=== PATIENT | female | born 1995 | race Caucasian/White ===

== ENCOUNTER 2025-03-13 18:22 | Emergency (ER) | payer OTHER, SELFPAY ==
--- NOTE | 2025-03-13 18:25 | ED.URI ---
HPI - URI/Sore Throat General Chief Complaint: Upper Respiratory Infection Stated Complaint: Body ache Time Seen by Provider: 03/13/25 18:24 Source: patient Mode of arrival: ambulatory Limitations: no limitations History of Present Illness HPI Narrative: Patient is a 29-year-old female presents with body aches and feeling feverish since this morning. Patient called in sick to work today needs a note. Denies any nausea, vomiting, diarrhea, congestion, sore throat, ear pain. Reports COVID is going around work Related Data Home Medications ?Medication ?Instructions ?Recorded ?Confirmed ?Last Taken ?Type clonazepam 1 mg tablet mg 03/13/25 Unknown History dextroamphetamine-amphetamine 30 03/13/25 Unknown History mg tablet escitalopram oxalate 10 mg tablet mg 03/13/25 Unknown History zolpidem 10 mg tablet mg 03/13/25 Unknown History Allergies Allergy/AdvReac Type Severity Reaction Status Date / Time No Known Allergies Allergy Verified 03/13/25 18:25 Review of Systems Review of Systems: All systems reviewed & are unremarkable except as noted in HPI and below Constitutional: Constitutional: Reports chills, Denies fatigue, Reports fever(s), Denies headache(s), Denies malaise and Denies weakness Eyes: Eyes: Denies blurry vision, Denies itchy eyes and Denies loss of vision ENT: Denies otalgia, Denies headache(s), Reports nasal congestion, Denies sinus pain and Denies sore throat Cardiovascular: Cardiovascular: Denies chest pain, Denies irregular heart rhythm and Denies dyspnea Respiratory: Respiratory: Reports cough and Denies dyspnea Gastrointestinal: Gastrointestinal: Denies abdominal pain, Denies diarrhea, Denies nausea and Denies vomiting Musculoskeletal: Musculoskeletal: Denies back pain, Reports myalgias and Denies arthralgias Integumentary/Breasts: Skin/Breast: Denies pruritus and Denies rash Neurologic: Denies headache(s), Denies loss of vision and Denies weakness Psychiatric: Psychiatric: Reports no additional psychiatric complaints Endocrine: Endocrine: Denies fatigue Allergic/Immunologic: Allergic/Immunologic: Denies itchy eyes PMFSH Comments At time of signature, agree with nursing past medical, surgical, social and family history. There is no relevant family history pertinent to the presenting complaint. Exam Const: General: cooperative, healthy appearing, comfortable, no acute distress and well nourished Nutritional Appearance: well nourished Orientation/consciousness: patient oriented x3 Limitations: no limitations HENMT: Head: normal to inspection, normocephalic and atraumatic Ears: hearing grossly normal bilaterally, external ears normal, TM's normal bilaterally, EAC's normal and no periauricular adenopathy Face/Nose/Sinus: Normal external nose present, Abnormal mucous membranes and turbinates present erythematous bilateral and diffuse, normal facial exam, sinuses nontender and face symmetric Face and sinus: normal facial exam, sinuses nontender and face symmetric Mouth: Yes Normal oral and palatal mucosa present, Yes lip normal, Yes tongue normal, Yes Normal salivary glands and ducts present, Yes oropharynx normal and Yes moist mucous membranes Teeth and gingiva: dentition normal Throat: posterior oropharynx normal, tonsils normal and uvula midline Eyes: General: appearance normal, both eyes and all related structures Alignment and Position: alignment normal and position normal Periorbital: periorbital findings normal Eyelids: eyelids normal Pupils: Equal, round and reactive pupils present Neck: Neck: normal visual inspection, full ROM, no lymphadenopathy and supple Chest: Chest palpation & inspection: normal inspection of the chest and normal palpation of entire chest wall Resp: Effort & Inspection: normal respiratory effort and able to speak in complete sentences Auscultation: clear to auscultation bilaterally, no crackles, no rales, no rhonchi and no wheezes Cardio: Rate: regular rate Rhythm: regular rhythm Heart sounds: S1 normal heart sound present and S2 normal heart sound present GI: Inspection: normal to inspection Skin: General skin exam: normal color and no rashes or lesions noted Neuro: General: patient oriented x3 and moves all extremities Cranial nerves: Yes Equal, round and reactive pupils present Speech: normal speech Gait exam (Neuro): Normal gait present Extrem: General: normal to inspection, full ROM and no edema Psych: Appearance: grossly normal and well kempt Mental Status: mental status grossly normal Speech and movement: Normal speech and movement present Affect: normal affect Attitude: cooperative Thought process: Normal thought process present Course Course Emergency Course: Discharge instructions reviewed with patient, as well as provided in writing per nursing staff. The instructions also include specific and strict return/GO TO THE ER as well as f/u information. All questions have been answered, and the patient deny any further questions with discharge and discharge plan. Portions of this record may have been created with voice recognition software Level of Care: Express Care Visit Vital Signs Vital signs: Vital Signs Temperature 36.6 C 03/13/25 18:34 Pulse Rate 70 03/13/25 18:34 Respiratory Rate 18 03/13/25 18:34 Blood Pressure 120/78 03/13/25 18:34 Pulse Oximetry 100 03/13/25 18:34 Oxygen Delivery Room Air 03/13/25 18:34 Temperature 36.6 C 03/13/25 18:34 Pulse Rate 70 03/13/25 18:34 Respiratory Rate 18 03/13/25 18:34 Blood Pressure 120/78 03/13/25 18:34 Pulse Oximetry 100 03/13/25 18:34 Oxygen Delivery Room Air 03/13/25 18:34 Reviewed MDM - URI/Sore Throat MDM Narrative Medical decision making narrative: Pt well hydrated appearing, in no respiratory distress, hemodynamically stable. Recommend supportive care. The patient is stable at time of discharge the clinical impression was discussed and the patient was given the opportunity to ask questions, which were addressed as completely as possible given the information available at present. Anticipatory guidance and return to care precautions were discussed and the importance of primary care follow-up was stressed and encouraged. The patient voiced understanding of the plan, indications to return, and the need for follow-up. Exam findings show no acute concerns or changes Patient is appropriate for outpatient treatment and follow-up. Differential diagnosis considered: Bland virus, strep pharyngitis, allergic rhinitis, upper respiratory tract infection, sinusitis, rhinosinusitis, nasopharyngitis. viral pharyngitis, otitis media, otitis externa, otitis effusion, foreign body, cerumen impaction, viral syndrome, and influenza.? Lab Data Attestation: I reviewed the patient's lab results. Labs: Lab Results 03/13/25 Range/Units 18:48 POC SARS CoV-2 Ag Negative (Negative) Discharge Plan Discharge Clinical Impression: Upper respiratory infection Qualifiers: URI type: unspecified viral URI Qualified Code(s): J06.9 - Acute upper respiratory infection, unspecified Patient Disposition: Home Condition: Stable Instructions: Upper Respiratory Infection (ED) Additional Instructions: Your Covid is negative Your symptoms are likely due to a viral illness, which is not treated with antibiotics. Viral symptoms can be present for up to a few weeks. -For pain/fever, you may take: Tylenol 650-1000mg by mouth every 4-6 hours. Do not exceed 4000mg in 24 hours. Advil (Ibuprofen) 600 mg by mouth every 6 hours. Do not exceed 2400mg in 24 hours. 8 AM: Tylenol 11 AM: Ibuprofen 2 PM: Tylenol 5 PM: Ibuprofen 8 PM: Tylenol 11 PM: Ibuprofen 2 AM: Tylenol 5 AM: Ibuprofen -Antihistamine medication such as Benadryl/Zyrtec at night and Claritin/Suzanna during the day can help improve symptoms. -Use Flonase twice a day for 5 days then daily to help reduce the inflammation and dry up your sinuses. -You can also use Sudafed behind the pharmacy counter(12 or 24 hour). Be sure to drink plenty of water with these medications at least 8 ounces with every dose and it is important to drink 8 to 10 glasses of water per day. Water is a natural decongestant -Eat and drink things that are easy to swallow, like tea or soup, or popsicles. -Oral rinses such as: Salt water gargles and/or may use topical anesthetic (eg. Chloraseptic spray) or lozenges to relieve dryness or throat pain). -Frequent hand washing or hand truck service technician is one of the best ways to prevent spread of infection. -Using a vaporizer or humidifier at night will also help thin secretions and help with coughing up phlegm. Call your Primary Care Doctor and make a follow-up appointment in 3 days. If your cough worsens, you develop a fever greater than 103, you develop shaking chills, a fast heartbeat, trouble breathing and/or feel you are are breathing much faster than usual, call your Primary Care Doctor or go to the ER. Patient Language: Syriac Prescriptions: No Action clonazepam 1 mg tablet dextroamphetamine-amphetamine 30 mg tablet zolpidem 10 mg tablet escitalopram oxalate 10 mg tablet Follow-up/Referrals: Mack Cintron MD [Physician] - 3 Days UNKNOWN,DOCTOR [Non-Staff] - Stand Alone Forms: Work/School Release IP Time of Disposition: 18:54
--- OUTSIDE RECORDS SUMMARY | 2025-03-13 18:25 | XMS_ITS | Clinical Summary ---
Author Organization [facility] Address [address] [place] [address] Phone Care Team Providers Care Preschool Disability Teacher Name Role Phone Unavailable Primary Care Provider Unavailabl e Encounters Date Type Department Care Team Description 12/22/2024 Transcribe Orders [facility] Central Scheduling [address] [place] [address] Eneida Rosenberg MD Female infertility, unexplained from Last 3 Months Social History Tobacco Use Types Packs/Day Years Used Date Smoking Tobacco: Never Assessed Comments Unknown Sex and Gender Information Value Date Recorded Sex Assigned at Not on file Legal Sex Female 9:28 PM CDT Gender Identity Not on file Sexual Orientation Not on file Plan of Treatment Health Maintenance Due Date Last Done Comments Hepatitis C Virus (HCV) Screening 1995 TdaP Immunization 1995 Hepatitis B Immunization (1 of 3 - 19+ 3-dose series) 2014 Pap Smear 2016 Human Papillomavirus (HPV) Immunization (1 - 3-dose SCDM series) 2022 SARS-COV-2 Immunization ( season) 2024 Influenza Immunization (#1) 2025 Respiratory Syncytial Virus (RSV) Immunization (Adult) (1 - 1-dose 75+ series) 2070 Meningococcal Immunization (ACWY) Aged Out No longer eligible based on patient's age to complete this topic Pneumococcal Immunization Combined Aged Out No longer eligible based on patient's age to complete this topic Rotavirus Immunization Aged Out No lo nger eligible based on patient's age to complete this topic
--- OUTSIDE RECORDS SUMMARY | 2025-03-13 18:25 | XMS_ITS | Clinical Summary ---
Author Organization [facility] [address] Address [address] [place] [address] Phone Care Team Providers Care [employer] Professional Name Role Phone Celia Campa MD Primary Care Provider [phone] Allergies No known active allergies Medications zolpidem (AMBIEN) 10 mg tablet 1 0 Active escitalopram (LEXAPRO) 10 mg tablet Take 10 mg by mouth daily 2 Active cyclobenzaprine (FLEXERIL) 5 mg tabletIndications:D ysmenorrhea Take 1 tablet (5 mg total) by mouth 3 (three) times a day as needed for muscle spasms 20 tablet 11 3 Active clonazePAM (KlonoPIN) 1 mg tablet 5 Active dextroamphetamine-a mphetamine (ADDERALL) 30 mg tablet Take 1 tablet (30 mg total) by mouth 2 (two) times a day 5 Active ondansetron ODT (ZOFRAN-ODT) 4 mg disintegrating tabletIndications:A cute Gastroenteritis-rel ated Vomiting in Pediatrics Take 1 tablet (4 mg total) by mouth every 8 (eight) hours as needed for nausea or vomiting 12 tablet 5 Active Active Problems Problem Noted Date Diagnosed Date Gastroenteritis 02/01/2025 Assessment & Plan (02/01/2025 7:58 PM CDT): Orders: ondansetron ODT (ZOFRAN-ODT) 4 mg disintegrating tablet; Take 1 tablet (4 mg total) by mouth every 8 (eight) hours as needed for nausea or vomiting Resolved Problems Problem Noted Date Diagnosed Date Resolved Date Obesity (BMI 30-39.9) 08/27/20172024 Encounters Date Type Department Care Team Description 02/01/2025 6:45 PM CDT Office Visit [facility] Care at [address] [place] [address] Geneva Hernandez NP Flu-like symptoms (Primary Dx); Gastroenteritis 12/22/2024 Telephone [facility] [address] [place] [address] Eneida Rosenberg MD Call back 12/12/2024 Results [facility] [address] [place] [address] Eneida Rosenberg MD Pap with reflex to High Risk HPV and Genotyping (Cytology Component) from Last 3 Months Immunizations Immunization Administration Dates Next Due COVID-19 mRNA ([employer]) 0.3 m L (30 mcg) vaccine (12 years and up) 08/05/2024 DTP / HiB 09/16/1996, 6,1995,06/18 HPV, Quadrivalent 01/21/2016,02/12/2015,02/12/20 07 Hep A, Adult 02/10/2015 Hep A, Pediatric 02/23/2006 Hep B, Adolescent or Pediatric 1995,1994 Influenza, Trivalent, IM (MDV) 1,06/01/2020,05/29/2019,06/18,09/04/2017 Influenza, Trivalent, Preser vative Free, Intramuscular 05/04/2015 MMR 09/16/1996 Meningococcal MCV4P (Menactra) 02/10/2015 OPV 1995,1995,1995 Tdap 02/05/2019 Surgical History Surgery Date Site/Laterality Comments TONSILLECTOMY OTHER SURGICAL HISTORY Plastic surgery - facial SLEEVE GASTROPLASTY 11/04/2021 - 12/03/2021 Family History Medical History Relation Name Comments Diabetes Father Diabetes mellit us; Cause of : Diabetes mellitus Breast cancer Mother's Sister Cancer, josh ast; Hypertension Other Family history of Hypertension; Breast cancer Paternal Grandmother Cancer , breast; Relation Name Status Comments Father (Age 39) Mother's Sister Other Paternal Grandmother Social History Tobacco Use Types Packs/Day Years Used Date Smoking Tobacco: Never Smokeless Tobacco: Never Alcohol Use Standard Drinks/Week Comments Yes 0 (1 standard drink = 0.6 oz pur e alcohol) Comments No Sex and Gender Information Value Date Recorded Sex Assigned at Not on file Legal Sex Female 8:53 AM 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 Gender Identity Not on file Sexual Orientation Not on file 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 Not on file Not on file Obstetrics History Para Term AB IAB SAB Ectopic Multiple Livin g Live Births 0 0 0 0 0 0 0 0 0 0 0 Last Filed Vital Signs Vital Sign Reading Time Taken Comments Blood Pressure 122/74 02/01/2025 6:56 PM CDT Pulse 66 02/01/2025 6:56 PM CDT Temperature 36.8 C (98.3 F) 02/01/2025 6:56 PM CDT Respiratory Rate - - Oxygen Saturation 99% 02/01/2025 6:56 PM CDT Inhaled Oxygen Concentration - - Weight 76.7 kg (169 lb) 02/01/2025 6:56 PM CDT Height 167.6 cm (5' 6) 02/01/2025 6:56 PM CDT Body Mass Index 27.28 02/01/2025 6:56 PM CDT Plan of Treatment Health Maintenance Due Date Last Done Comments Depression Screening 1995 Hepatitis C Screening 1995 Varicella Vaccines (1 of 2 - 13+ 2-dose series) 2008 Influenza Vaccine (#1) 2025 , 04/14/2021, 06/01/2020, Additional history exists Cervical Cancer Screening 12/04/20252024, 12/04/2024, 10/04/2022, Additional history exists Regular Well Visit/Exam 18-64 12/04/2025 12/04/2024, 10/04/2022, 09/27/2021, Additional history exists DTaP/Tdap/Td Vaccine (6 - Td or Tdap) 02/05/2029 02/05/2019, 09/16/1996, 1995, Additional history exists Hepatitis B Screening Completed 1995, 995 HPV Vaccines Completed 01/21/2016, 02/03, 02/11/2007 Covid-19 Vaccine Completed 08/05/2024, 02/2021, 08/25/2020, Additional history exists Pneumococcal vaccine <65 Aged Out No longer eligible based on patient's age to complete this topic Procedures Procedure Name Priority Date/Time Associated Diagnosis Comments POC INFLUENZA A/B, COVID-19 ANTIGEN Routine 02/01/2025 7:00 PM CDT Flu-like symptoms PAP WITH REFLEX TO HIGH RISK HPV Routine 12/04/2024 11:55 AM CDT Screening for malignant neoplasm of the cervix from Last 3 Months or Most Recently Relevant to Health Maintenance Results * POC Influenza A/B, COVID-19 antigen (02/01/2025 7:00 PM CDT) Influenza A Ag, POC Negative Negative [facility] Influenza B Ag, POC Negative Negative [facility] COVID-19 Ag POC Presumptive Negative Presumptive Negative, Invalid [facility] Nasal 02/01/2025 7:00 PM CDT us Geneva Hernandez NP POINT OF CARE TEST OR DERABLES Final Result [facility] [address] [facility] [address] [place] [address], [facility] * (ABNORMAL) Pap with reflex to High Risk HPV and Genotyping (Cytology Component) (12/04/2024 11:55 AM CDT) Thin prep (Pap test) 12/04/2024 11:55 AM CDT 12/04/2024 11:55 AM CDT Narrative PATHOLOGY CH - 12/09/2024 6:53 PM CDT [facility] Department of Pathology [address] [place] [id number] Final Report with Addendum Note to Patients: This report may contain a detailed description of human tissue sent by a health care provider to the laboratory for pathologic evaluation. The content of this report is essential for diagnosis and may provide important critical findings. This information may be unfamiliar to patients to review without a medical professional present. It is advised that the patient review this report in the presence of a health care provider who can answer questions and explain the details. Patient Name: CLOVIS GAY Address: [address] [place], [place] [id number] Gender: F : 1995 (Age: 29) Service: Location: N : [id number] Hospital #: [id number] Patient Type: SPECIMEN Taken: 12/04/2024 Received: 12/04/2024 Accessioned:: 12/05/2024 Reported: 12/09/2024 Physician(s): MD Eneida Velazquez MD Diagnosis: SOURCE OF SPECIMEN Imaged Thinprep Pap Test w/ Reflex HPV - Plier Worker Cytologic Material: STATEMENT OF ADEQUACY - Specimen satisfactory for interpretation; endocervical/transformation zone component absent or insufficient GENERAL CATEGORIZATION: - Epithelial cell abnormality INTERPRETATION: - Atypical squamous cells of undetermined significance; - High risk HPV test pending -- addendum to follow DAVID Gonzalez(ASCP)Ernesto Aponte M.D. Report Electronically Reviewed and Signed Out By Ernesto Aponte M.D. 12/09/2024 18:53:54Addenda: HPV Test Interpretation HPV HR 16- Not Detected HPV HR 18- Not Detected HPV HR non 16/18- Detected Interpretive Data Nucleic acid amplification for detection of high-risk Human Papilloma virus (HPV) is performed by the Ramya Fransisco 6800 HPV test. This assay specifically detects HPV-16 and HPV-18 genotypes. The following HPV genotypes are detected as high-risk HPV: HPV-31, 33, 35, 39, 45, 51, 52, 56, 58, 59, 66, and 68. This assay has been approved by the [place] Food and Drug Administration for detection of HPV in cervical specimens collected by a physician using an endocervical brush/spatula or cervical broom and placed in the ThinPrep Pap Test PreservCyt collection containers. The performance characteristics of this test have been verified by the [facility]ious Disease laboratory. Correlate with reported cytology results, as applicable. Interpretive data last revised 23 DAVID Gonzalez(ASCP)Report Electronically Reviewed and Signed Out By DAVID Gonzalez(ASCP) 12/12/2024 09:48:47 Specimen(s) Received: A: Imaged Thinprep Pap Test w/ Reflex HPV - Plier Worker Cytologic Material Clinical History: Last Menstrual Period: 11/23/24 Menstrual History: Previous Negative Pap The Pap test is a screening test used to aid in the detection of cervical cancer and its precursors. It should not be the sole means by which malignant and premalignant lesions are diagnosed. Both false negative and false positive results may occur. It also has poor sensitivity for the detection of endometrial lesions and should not be used to evaluate suspected endometrial abnormalities. For these reasons it is most important to obtain Pap tests at regular intervals. The performance characteristics of some immunohistochemical stains, fluorescence in-situ hybridization tests and immunophenotyping by flow cytometry cited in this report (if any) were determined by the Surgical Pathology Department at [facility] as part of an ongoing quality assurance monitor chassis program and in compliance with federally mandated regulations drawn from the Clinical Laboratory Improvement Act of 1988 (CLIA '88). Some of these tests rely on the use of analyte specific reagents and are subject to specific labeling requirements by the [place] Food and Drug Administration. Such diagnostic tests may only be performed in a facility that is certified by the Department of Health and Human Services as a high complexity laboratory under CLIA '88. The FDA has determined that such clearance or approval is not necessary. This test is used for clinical purposes. It should not be regarded as investigational or for research. Nevertheless, federal rules concerning the medical use of analyte specific reagents require that the following disclaimer be attached to the report: This test was developed and its performance characteristics determined by the Surgical Pathology Department [facility]. It has not been cleared or approved by the U. S. Food and Drug Administration. Eneida Rosenberg MD LAB CYTOLOGY ORDERABL ES Final Result [facility] [address] [place] [address] from Last 3 Months or Most Recently Relevant to Health Maintenance Insurance [employer] [facility] [id number] Care Teams Elementary School Professional Relationship Specialty Start Date End Date Celia Campa MD [address] [facility] [address] [place] [address] PCP - General 09/26/18
--- OUTSIDE RECORDS SUMMARY | 2025-03-13 18:29 | XMS_ITS | Encounter Summary ---
Author Organization [facility] Address [facility] access [facility] [place] [address] Care Team Providers Care Liability Claims Adjuster Name Role Phone Celia Campa MD Primary Care Provider Reason for Visit * Auth/Cert (Routine) Specialty Diagnoses / Procedures Referred By Jane abad Referred To Contact Diagnoses HALLUX VALGUS Procedures CORRECT BUNION,METATARSAL OSTEOTOMY FLAVIO BUNIONECTOMY WITH HARDWARE RIGHT FOOT Kulwinder Soto DPM [address] [place] [address] Phone: tel: fax: Referral ID Status Reason Start Date Expiration Date Visits Re quested Visits Authorized [id number] 1 1 Encounter Details Date Type Department Care Team (Late st Contact Info) Description 12/19/2024 Hospital Encounter [facility] [place] [address] Kulwinder Soto DPM [address] [place] [address] Social History Tobacco Use Types Packs/Day Years Used Date Smoking Tobacco: Never Smokeless Tobacco: Never Alcohol Use Standard Drinks/Week Comments No 0 (1 standard drink = 0.6 oz pur e alcohol) AUDIT-C Answer Date Recorded Frequency of Alcohol Consumption Never 09/16/2018 Average Number of Drinks Not on file 019 Frequency of Binge Drinking Not on file 09/06 Comments No Sex and Gender Information Value Date Recorded Sex Assigned at Not on file Legal Sex Female 6:16 PM CDT Gender Identity Not on file Sexual Orientation Not on file documented as of this encounter Plan of Treatment Not on file documented as of this encounter Visit Diagnoses Not on filedocumented in this encounter Care Teams Liability Claims Adjuster Relationship 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 documented as of this encounter
--- OUTSIDE RECORDS SUMMARY | 2025-03-13 18:29 | XMS_ITS | Clinical Summary ---
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 This disclosure is being madepursuant to the Care Everywhere program and may not contain all information available regarding this patient. Last updated 18.[facility] [employer] Allergies No known active allergies Medications * Be aware that medications may not be up to date on this document. Alwaysverify current medications with the patient. zolpidem (AMBIEN) 10 MG tablet Take 1 (one) tablet by mouth nightly as needed 04/24/2020 Active escitalopram (LEXAPRO) 10 MG tablet Take 1 (one) tablet by mouth once daily 11/09/2019 Active amphetamine-dex troamphetamine (ADDERALL) 10 MG tablet Take 1.5 (one and one-half) tablets by mouth 2 times daily Takes only on work days 11/09/2015 Active clonazePAM (KLONOPIN) 2 MG tablet Take 1 (one) tablet by mouth 3 times daily as needed for Anxiety 10/24/2021 Active cyclobenzaprine (FLEXERIL) 10 MG tablet Take 1 (one) tablet by mouth 3 times daily as needed for Muscle Spasms 30 tablet 11/23/2021 Active Active Problems Problem Noted Date Diagnosed Date Morbid obesity 11/21/2021 Family History Medical History Relation Name Comments Hypertension Mother Cancer - Colon Paternal Aunt Cancer - Breast Paternal Grandmother Relation Name Status Comments Father Alive Mother Alive Paternal Aunt Paternal Grandmother Social History Tobacco Use Types Packs/Day Years Used Date Smoking Tobacco: Never Smokeless Tobacco: Never AUDIT-C Answer Date Recorded Q1: How often do you have a drink containing alc ohol? Monthly or less 11/21/2021 Q2: How many drinks containi ng alcohol do you have on a typical day when you are drinking? 3 or 4 11/21/2021 Q3: How often do you have si x or more drinks on one occasion? Never 11/21/2021 Comments No Sex and Gender Information Value Date Recorded Sex Assigned at Female 11/08/2021 5:22 PM CDT Legal Sex Female 6:24 PM [employer] Gender Identity Female 11/08/2021 5:22 PM CDT Sexual Orientation Not on file Last Filed Vital Signs Vital Sign Reading Time Taken Comments Blood Pressure 110/76 11/30/2023 9:17 AM CDT Pulse 66 11/30/2023 9:17 AM CDT Temperature 36.2 C (97.1 F) 11/30/2023 9:17 AM CDT Respiratory Rate 18 05/25/2022 10:22 AM CDT Oxygen Saturation 97% 11/30/2023 9:17 AM CDT Inhaled Oxygen Concentration - - Weight 77.6 kg (171 lb) 11/30/2023 9:17 AM CDT Height 167.6 cm (5' 6) 11/30/2023 9:17 AM CDT Body Mass Index 27.6 11/30/2023 9:17 AM CDT Plan of Treatment Health Maintenance Due Date Last Done Comments HIV SCREENING 2010 HEPATITIS C SCREENING 04/05/2013 DTAP/TDAP/TD VACCINES (1 - Tdap) 2014 HEPATITIS B VACCINE (1 of 3 - 19+ 3-dose series) 2014 HPV VACCINE (1 - 3-dose SCDM series) 2022 COVID-19 VACCINE (3 - 2023- season) 2024 08/25/2020, 08/03/2020 DEPRESSION SCREENING 08/06/2024 INFLUENZA VACCINE (#1) 2025 , 06/01/2020, 05/29/2019, Additional history exists PAP SMEAR 10/04/2025 10/04/2022 ZOSTER VACCINE (1 of 2) 2045 HIB VACCINE Aged Out No longer eligi ble based on patient's age to complete this topic MENINGOCOCCAL (Group B) VACCINE SHARED DECISION-MAKING Aged Out No longer eligible based on patient's age to complete this topic MENINGOCOCCAL GROUPS A/C/Y/W VACCINE Aged Out No longer eligible based on patient's age to complete this topic PNEUMOCOCCAL VACCINE Aged Out No long er eligible based on patient's age to complete this topic Advance Directives * Full Code (Latest Code Status on File) Date Activated Date Inactivated Comments 11/21/2021 7:27 PM 11/22/2021 4:10 PM Care Teams Winder Contort Operator Relationship Specialty Start Date End Date Celia Campa MD [address] [id number] PCP - General Family Medicine 09/29/21
--- OUTSIDE RECORDS SUMMARY | 2025-03-13 18:29 | XMS_ITS | Clinical Summary ---
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 1 11/07/2017 Active acetaminophen 500 MG tablet Take 1 tablet (500 mg total) by mouth every 6 (six) hours as needed for Pain. 30 tablet 10/20/2018 Active diclofenac EC 75 MG tablet Take 1 tablet (75 mg total) by mouth 2 (two) times daily as needed (Pain. Please take with meals). 30 tablet 08/16/2021 Active Encounters Date Type Department Care Team Description 12/19/2024 Hospital Encounter [facility] [place] [address] Kulwinder Soto DPM from Last 3 Months Immunizations Immunization Administration Dates Next Due Tdap (Boostrix) 02/05/2019 Family History Medical History Relation Comments None Father None Mother Relation Status Comments Father Mother Social History Tobacco Use Types Packs/Day Years [...] on file Sexual Orientation Not on file Last Filed Vital Signs Vital Sign Reading Time Taken Comments Blood Pressure 143/94 08/16/2021 4:06 AM HOG COUNTER Pulse 75 08/16/2021 4:06 AM HOG COUNTER Temperature 36.1 C (97 F) 08/16/2021 4:06 AM HOG COUNTER Respiratory Rate 18 08/16/2021 4:06 AM HOG COUNTER Oxygen Saturation 99% 08/16/2021 4:06 AM HOG COUNTER Inhaled Oxygen Concentration - - Weight 126 kg (277 lb 12.5 oz) 08/16/2021 4:07 A M HOG COUNTER Height 167.6 cm (5' 6) 08/16/2021 4:06 AM HOG COUNTER Body Mass Index 44.83 08/16/2021 4:06 AM HOG COUNTER Plan of Treatment Health Maintenance Due Date Last Done Comments Hepatitis B Vaccines (3 of 3 - 3-dose series) 01/09/1996 1995, 1995 Annual Physical 1998 Hepatitis C 2013 COVID-19 Vaccine ( season) 2024 08/25/2020, 08/03/2020 Cervical Cancer Screening Pap Smear (Age 21 to 29) Every 3 Years 10/04/2025 10/04/2022 Cervical Cancer Screening 10/04/2025 DTaP, Tdap and Td Vaccines (2 - Td or Tdap) 02/05/2029 02/05/2019, 09/16/1996, 1995, Additional history exists Meningococcal Vaccine Aged Out 02/10/2015 No angi dequan eligible based on patient's age to complete this topic HPV Vaccines Completed 01/21/2016, 02/03, 02/11/2007 Meningococcal B Vaccine Aged Out No l onger eligible based on patient's age to complete this topic Pneumococcal Vaccine: Pediatrics (0 to 5 Years) and At-Risk Patients (6 to 49 Years) Aged Out No longer eligible based on patient's age to complete this topic RSV Immunizations Under 20 Months Aged Out No longer eligible based on patient's age to complete this topic Insurance [facility] 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
[2025-03-13 18:34] VITALS: BP 120/78; PULSE 70; RESP 18; TEMP 36.6; O2SAT 100
[2025-03-13 18:50] LABS: EDCOVIDSCREEN Negative (Negative)
== END 2025-03-13 18:54 | disposition home or self-care (01) ==
PROVIDERS: Emergency Provider Nurse Practitioner Family
DX: J06.9 Acute upper respiratory infection, unspecified (principal); Z20.822 Contact with and (suspected) exposure to COVID-19
CPT/HCPCS: 87426; 99202; G0463